=== PATIENT | female | born 1965 | race Caucasian/White ===

== ENCOUNTER 2018-01-12 12:56 | Emergency (ER) | payer BC | END 2018-01-12 13:33 | disposition left against medical advice (07) | LOC: JD.ED 12:56 | DX: Z53.21 Procedure and treatment not carried out due to patient leaving prior to being seen by health care provider (principal) ==

== ENCOUNTER 2025-03-06 16:59 | Emergency (ER) | payer MEDICARE, MEDICAID ==
[2025-03-06 19:44] VITALS: BP 157/65; PULSE 84
== END 2025-03-06 18:40 | disposition home or self-care (01) ==
LOC: JD.ED 16:59
DX: J39.8 Other specified diseases of upper respiratory tract (principal); F41.9 Anxiety disorder, unspecified; I10 Essential (primary) hypertension; J45.909 Unspecified asthma, uncomplicated; E11.9 Type 2 diabetes mellitus without complications; Z91.030 Bee allergy status; Z86.16 Personal history of COVID-19; Z99.81 Dependence on supplemental oxygen
CPT/HCPCS: 99284